=== PATIENT | female | born 1950 | race Hispanic/Latino ===

== ENCOUNTER → 2018-01-18 | Outpatient (CLI) | payer MEDICARE ==
[~2018-01-18] VITALS: Ht 152.4 cm; Wt 87.1 kg
[~2018-01-18] MED LIST: REGADENOSON 0.4 MG/5 ML PF SYG IVP SCH
== END | disposition home or self-care (01) ==
LOC: SHCH 08:39
PROVIDERS: ATTEND Internal Medicine Cardiovascular Disease
DX: I25.10 Atherosclerotic heart disease of native coronary artery without angina pectoris (principal)
CPT/HCPCS: 78452; 93017; 96374; A9500 ×2; J2785

== ENCOUNTER → 2018-01-19 | Outpatient (CLI) | payer MEDICARE | END | disposition home or self-care (01) | LOC: SHCH 13:33 | PROVIDERS: ATTEND Internal Medicine Cardiovascular Disease | DX: I25.119 Atherosclerotic heart disease of native coronary artery with unspecified angina pectoris (principal) | CPT/HCPCS: 93306 ==

== ENCOUNTER → 2018-06-16 | Outpatient (CLI) | payer MEDICARE | END | disposition home or self-care (01) | LOC: SHCH 10:59 | PROVIDERS: ATTEND Internal Medicine Cardiovascular Disease | DX: I73.9 Peripheral vascular disease, unspecified (principal) | CPT/HCPCS: 93925 ==

== ENCOUNTER 2018-10-06 07:16 | Day surgery (SDC) | payer MEDICARE ==
[2018-10-03 15:36] LABS: EOSINOPHILS % (AUTO) 1.7 % (0.0-8.0); HEMATOCRIT 32.8 % (36-48); LYMPHOCYTES % (AUTO) 24.9 % (21.0-51.0); MEAN CORPUSCULAR HEMOGLOBIN 30.9 pg (27.0-33.0); MEAN CORPUSCULAR HGB CONC 33.8 g/dL (32.0-36.0); MEAN CORPUSCULAR VOLUME 91.3 fL (79-99); MONOCYTES % (AUTO) 5.7 % (3.0-13.0); NEUTROPHILS % (AUTO) 66.7 % (40.0-77.0); PLATELET COUNT (AUTO) 208 K/uL (130-400); RED BLOOD CELL COUNT(AUTO) 3.59 MIL/uL (4.00-5.50); RED CELL DISTRIBUTION WIDTH 13.8 % (11.0-15.5); WHITE BLOOD COUNT (AUTO) 4.9 K/uL (4.8-10.8)
[2018-10-03 15:50] LABS: CREATININE 1.7 mg/dL (0.5-1.5); POTASSIUM 4.2 mmol/L (3.5-5.1)
[2018-10-03 16:10] VITALS: BP 99/53
--- NOTE | 2018-10-03 16:58 | NUR ---
UNAVAILABLE MEDICATIONS AT PREOP PATIENT NOR FAMILY MEMBER BROUGHT MEDICATIONS TO PREOP. DAUGHTER STATES SHE IS ON A BLOOD THINNER AND THINKS IT IS XARELTO FOR CIRCULATION OF LEGS. ADVISED DAUGHTER SHE WOULD NEED TO BRING MEDICATION IN THE AM SO WE CAN TELL HER WHAT MEDICATIONS HER MOTHER NEEDS TO TAKE AND WHAT BLOOD THINNER SHE IS ON. STATED SHE WOULD BRING THEM IN THE AM.
[2018-10-05 15:30] LABS: APPEARANCE,URINE CLEAR (CLEAR); BILIRUBIN,URINE NEGATIVE (NEGATIVE); COLOR,URINE YELLOW (YELLOW); GLUCOSE, URINE (UA) 250 mg/dL (NEGATIVE); KETONES,URINE NEGATIVE (NEGATIVE); LEUKOCYTE ESTERASE ,URINE SMALL (NEGATIVE); NITRATE,URINE NEGATIVE (NEGATIVE); OCCULT BLOOD,URINE NEGATIVE (NEGATIVE); PROTEIN,URINE NEGATIVE (NEGATIVE); UROBILINOGEN,URINE 0.2 mg/dL (0.2-1.0)
[2018-10-05 15:49] LABS: BACTERIA,URINE Few /HPF (None Seen); RBC,URINE 0-1 /HPF (0-1); SQUAMOUS EPITHELIAL CELL,UR Few /HPF (0-2)
[~2018-10-06] VITALS: Ht 154.9 cm; Wt 82.7 kg
[2018-10-06] VITALS (12 sets, daily range): BP systolic 119–151; BP diastolic 46–72
[~2018-10-06 07:16] MED LIST changes: +ATOR40TA71 PO; +CALC-190 PO; +CARV3.12 PO; +CHOL200016 PO; +DOCU-272 PO; +ESOM40CA54 PO; +FENO145T37 PO; +FERS325 PO; +FOLI1TAB61 PO; +FURO20TA4 PO; +INSU3INS5 SQ; +LEVO125T11 PO; +MIRA50TA PO; +NITR0.4T50 SL; +NITR100C PO; +PREG100C PO; +PREG50 PO; -REGADENOSON 0.4 MG/5 ML PF SYG IVP SCH; +RIVA2.5T PO; +SERT50TA12 PO; +TIZA2CAP9 PO; +TRAM50TA4 PO
[2018-10-06] MEDS ORDERED: BOTULINUM TOXIN TYPE A 100 UNITS/VIAL INJ ONE (08:00)
[2018-10-06] MEDS ORDERED: SODIUM CHLORIDE 0.9% 1000ML 1,000 ML IV ONE (08:26)
[2018-10-06] MEDS: CEFTRIAXONE SODIUM 1 GM ONE ×2 (08:36→09:00)
[2018-10-06] MEDS ORDERED: SUCCINYLCHOLINE 200MG/10ML SYR ONE (09:00)
[2018-10-06] MEDS ORDERED: LIDOCAINE PF 2% 5ML ABBOJECT ONE (09:00)
[2018-10-06] MEDS ORDERED: DEXAMETHASONE SOD PHOSPHATE 10MG/ML 1ML VIAL ONE (09:00)
[2018-10-06] MEDS ORDERED: NEOSTIGMINE 5MG/5ML SYR IV ONE (09:01)
[2018-10-06] MEDS ORDERED: PROPOFOL 10 MG/ML 20ML VIAL IV ONE (09:01)
[2018-10-06] MEDS ORDERED: ONDANSETRON HCL 4 MG/2 ML VIAL ONE (09:01)
[2018-10-06] MEDS ORDERED: ROCURONIUM 10MG/1ML SYR 10 MG/ML ML ONE (09:01)
[2018-10-06] MEDS ORDERED: GLYCOPYRROLATE 1 MG/5 ML SYRINGE ONE (09:01)
[2018-10-06] MEDS ORDERED: FENTANYL CITRATE PF 50 MCG/1 ML 2ML VIAL ONE (09:02)
--- NOTE | 2018-10-06 10:22 | NUR ---
ASSESSMENT RECEIVED PT FROM PACU STAFF Malika BASS RN. PT [email or web address]. DENIES ANY DISCOMFORT. DAUGHTER AT BEDSIDE.
--- NOTE | 2018-10-06 10:55 | NUR ---
DISCHARGE ORAL AND WRITTEN DISCHARGE INSTRUCTIONS GIVEN TO PT AND PTS FAMILY NO QUESTIONS AT THIS TIME.
== END 2018-10-06 10:56 | disposition home or self-care (01) ==
LOC: DAH 07:16
PROVIDERS: ATTEND Urology
DX: N39.46 Mixed incontinence (principal); I10 Essential (primary) hypertension; E11.9 Type 2 diabetes mellitus without complications; Z95.1 Presence of aortocoronary bypass graft; Z86.73 Personal history of transient ischemic attack (TIA), and cerebral infarction without residual deficits; I25.10 Atherosclerotic heart disease of native coronary artery without angina pectoris; Z91.040 Latex allergy status
CPT/HCPCS: 36415; 52287; 80048; 81001; 82948 ×2; 85025; 87088; 93005; A4215; A4358; A4600; J0330; J0585; J0696; J1100; J2001; J2405; J2704; J2710; J3010; J3490; J7030; J7120

== ENCOUNTER → 2019-02-07 | Outpatient (CLI) | payer MEDICARE ==
[~2019-02-07] VITALS: Ht 152.4 cm; Wt 87.1 kg
[~2019-02-07] MED LIST changes: -MIRA50TA PO; +REGADENOSON 0.4 MG/5 ML PF SYG IVP SCH
== END | disposition home or self-care (01) ==
LOC: SHCH 08:46
PROVIDERS: ATTEND Internal Medicine Cardiovascular Disease
DX: I25.810 Atherosclerosis of coronary artery bypass graft(s) without angina pectoris (principal); Z01.810 Encounter for preprocedural cardiovascular examination
CPT/HCPCS: 78452; 93017; 96374; A9500 ×2; J2785

== ENCOUNTER → 2019-04-10 | Outpatient (CLI) | payer MEDICARE ==
[~2019-04-10] VITALS: Ht 154.9 cm; Wt 79.9 kg
[~2019-04-10] MED LIST changes: +BOTULINUM TOXIN TYPE A 100 UNITS/VIAL INJ SCH; +FENO145T26 PO; -FENO145T37 PO; -REGADENOSON 0.4 MG/5 ML PF SYG IVP SCH
[2019-04-10 13:21] LABS: BASOPHILS % (AUTO) 1.1 % (0.0-5.0); EOSINOPHILS % (AUTO) 2.1 % (0.0-8.0); HEMATOCRIT 36.9 % (36-48); LYMPHOCYTES % (AUTO) 22.7 % (21.0-51.0); MEAN CORPUSCULAR HEMOGLOBIN 30.1 pg (27.0-33.0); MEAN CORPUSCULAR HGB CONC 33.1 g/dL (32.0-36.0); MEAN CORPUSCULAR VOLUME 91.1 fL (79-99); MONOCYTES % (AUTO) 6.7 % (3.0-13.0); NEUTROPHILS % (AUTO) 67.2 % (40.0-77.0); PLATELET COUNT (AUTO) 183 K/uL (130-400); RED BLOOD CELL COUNT(AUTO) 4.05 MIL/uL (4.00-5.50); RED CELL DISTRIBUTION WIDTH 13.2 % (11.0-15.5); WHITE BLOOD COUNT (AUTO) 4.8 K/uL (4.8-10.8)
[2019-04-10 13:31] LABS: CREATININE 1.5 mg/dL (0.5-1.5); POTASSIUM 4.1 mmol/L (3.5-5.1)
[2019-04-10 14:02] VITALS: BP 138/65
== END ==
LOC: DAH 10:00 → EDSTATUS 11:00
PROVIDERS: ATTEND Urology
DX: Z01.818 Encounter for other preprocedural examination (principal); R33.9 Retention of urine, unspecified; N13.8 Other obstructive and reflux uropathy; F41.9 Anxiety disorder, unspecified; F32.9 Major depressive disorder, single episode, unspecified; Z79.4 Long term (current) use of insulin; Z79.899 Other long term (current) drug therapy; Z88.8 Allergy status to other drugs, medicaments and biological substances; Z79.01 Long term (current) use of anticoagulants; Z82.49 Family history of ischemic heart disease and other diseases of the circulatory system; Z83.3 Family history of diabetes mellitus
CPT/HCPCS: 36415; 80048; 85025; 93005; A6260

== ENCOUNTER 2021-02-14 02:27 | Emergency (ER) | payer OTHER, MEDICARE ==
[~2021-02-14] VITALS: Ht 162.6 cm; Wt 86.2 kg
[~2021-02-14 02:27] MED LIST changes: -BOTULINUM TOXIN TYPE A 100 UNITS/VIAL INJ SCH; -DOCU-272 PO; +DOCU-280 PO; +SERT-439 PO; -SERT50TA12 PO
[2021-02-14] MEDS ORDERED: KETOROLAC 15MG/ML VIAL (15MG/ML) IV ONE (03:00)
[2021-02-14 05:36] VITALS: BP 151/72
== END 2021-02-14 05:17 | disposition home or self-care (01) ==
LOC: EDH 02:27
DX: S82.891A Other fracture of right lower leg, initial encounter for closed fracture (principal); I10 Essential (primary) hypertension; E11.9 Type 2 diabetes mellitus without complications; Z79.1 Long term (current) use of non-steroidal anti-inflammatories (NSAID); Z79.4 Long term (current) use of insulin; Z79.899 Other long term (current) drug therapy; W06.XXXD Fall from bed, subsequent encounter; Y93.89 Activity, other specified; Y92.89 Other specified places as the place of occurrence of the external cause; Y99.8 Other external cause status
CPT/HCPCS: 29515; 73600; 96374; 99284; J1885

== ENCOUNTER 2023-07-06 07:57 | Day surgery (SDC) | payer MEDICARE ==
[2023-06-28 11:22] LABS: BASOPHILS # (AUTO) 0.02 K/uL (0.00-0.20); BASOPHILS % (AUTO) 0.5 % (0.0-5.0); EOSINOPHILS # (AUTO) 0.06 K/uL (0.00-0.70); EOSINOPHILS % (AUTO) 1.6 % (0.0-8.0); HEMATOCRIT 29.1 % (36-48); IMMATURE GRANULOCYTE ABSOLUTE 0.01 K/uL (0-1); LYMPHOCYTES # (AUTO) 0.7 K/uL (1.0-4.8); LYMPHOCYTES % (AUTO) 18.4 % (21.0-51.0); MEAN CORPUSCULAR HEMOGLOBIN 29.5 pg (27.0-33.0); MEAN CORPUSCULAR HGB CONC 32.6 g/dL (32.0-36.0); MEAN CORPUSCULAR VOLUME 90.4 fL (79-99); MONOCYTES # (AUTO) 0.3 K/uL (0.1-1.0); MONOCYTES % (AUTO) 8.5 % (3.0-13.0); NEUTROPHILS # (AUTO) 2.7 K/uL (1.8-7.7); NEUTROPHILS % (AUTO) 70.7 % (40.0-77.0); PLATELET COUNT (AUTO) 109 K/uL (130-400); RED BLOOD CELL COUNT(AUTO) 3.22 MIL/uL (4.00-5.50); WHITE BLOOD COUNT (AUTO) 3.8 K/uL (4.8-10.8)
[2023-06-28 11:29] VITALS: BP 91/42; PULSE 69; RESP 16
[2023-06-28 11:33] LABS: ALBUMIN 2.6 g/dL (3.5-5.0); BILIRUBIN,TOTAL 0.6 mg/dL (0.2-1.0); CREATININE 1.4 mg/dL (0.5-1.0); POTASSIUM 4.1 mmol/L (3.5-5.1)
[2023-06-28 12:00] LABS: INR 1.01 (0.85-1.15); PROTHROMBIN TIME 11.9 SEC (9.6-11.6)
[2023-06-28 12:01] LABS: PARTIAL THROMBOPLASTIN TIME 30.5 SEC (26.3-35.5)
[2023-07-06] VITALS (16 sets, daily range): BP systolic 121–151; BP diastolic 52–66; PULSE 66–86; RESP 10–16
[~2023-07-06 07:57] MED LIST changes: +ACET-2079 PO; +ACET325T51 PO; +AEC81 PO; -CALC-190 PO; +CALC-898 PO; -CHOL200016 PO; +CYAN100099 PO; -DOCU-280 PO; -ESOM40CA54 PO; -FENO145T26 PO; -FERS325 PO; -FOLI1TAB61 PO; +FOLIC ACID PO; -FURO20TA4 PO; +FURO40TA5 PO; +GABA-529 PO; +HUMLIS7525 SQ; -INSU3INS5 SQ; +IPRA3AMP24 IH; +LACT10SO9 PO; +MONT-39 PO; -NITR0.4T50 SL; -NITR100C PO; +PANT40TA54 PO; +POTA-364 PO; -PREG100C PO; -PREG50 PO; -RIVA2.5T PO; +SERT-438 PO; -SERT-439 PO; -TIZA2CAP9 PO; -TRAM50TA4 PO
[2023-07-06] MEDS: INVANZ 1GM+NS 50ML IVPB 50 ML IV ONE (08:00)
[2023-07-06] MEDS: 0.9%NACL 1000ML 1,000 ML IV ONE (10:28)
[2023-07-06] MEDS ORDERED: ACETAMINOPHEN 1,000 MG/100 ML VIAL IV ONE (11:25)
[2023-07-06] MEDS ORDERED: FAMOTIDINE 20MG VIAL IV ONE (11:25)
[2023-07-06] MEDS ORDERED: PROPOFOL 10 MG/ML 20ML VIAL IV ONE (11:27)
[2023-07-06] MEDS ORDERED: LIDOCAINE PF 100MG/5ML (2%) SYRINGE 5ML ONE ×2 (11:27→11:35)
[2023-07-06] MEDS ORDERED: ROCURONIUM BROMIDE 10MG/1ML 5ML VL ONE (11:27)
[2023-07-06] MEDS ORDERED: FENTANYL CITRATE PF 50 MCG/1 ML 2ML VIAL ONE (11:27)
[2023-07-06] MEDS ORDERED: DEXAMETHASONE SOD PHOSPHATE 10MG/ML 1ML VIAL ONE (11:38)
[2023-07-06] MEDS ORDERED: ONDANSETRON 4MG INJ ONE (11:39)
[2023-07-06] MEDS: MEROPENEM 1 GM VIAL ONE (11:45)
[2023-07-06] MEDS: LIDOCAINE 1%-EPI 1:100,000 20 ML VIAL ONE (11:57)
[2023-07-06] MEDS: BUPIVACAINE/PF 0.25% 30ML VIAL IJ ONE (11:57)
[2023-07-06] MEDS: ONDANSETRON 4MG INJ ONE (13:02)
[2023-07-06] MEDS: MEPERIDINE-PF 25 MG/ML SYG ONE ×2 (13:02→13:09)
[2023-07-06] MEDS: DEXTROSE 50%-WATER 50 ML DISP.SYRIN IV ONE (13:03)
== END 2023-07-06 14:20 | disposition home or self-care (01) ==
LOC: DAH 07:57
PROVIDERS: ATTEND Surgery
DX: K64.2 Third degree hemorrhoids (principal); K92.1 Melena; I11.0 Hypertensive heart disease with heart failure; I50.9 Heart failure, unspecified; E11.51 Type 2 diabetes mellitus with diabetic peripheral angiopathy without gangrene; K21.9 Gastro-esophageal reflux disease without esophagitis; F41.9 Anxiety disorder, unspecified; E03.9 Hypothyroidism, unspecified; Z79.01 Long term (current) use of anticoagulants; Z79.899 Other long term (current) drug therapy; Z79.82 Long term (current) use of aspirin; Z79.4 Long term (current) use of insulin; Z98.890 Other specified postprocedural states; Z86.010 Personal history of colon polyps; Z86.73 Personal history of transient ischemic attack (TIA), and cerebral infarction without residual deficits
CPT/HCPCS: 80053; 85025; 85610; 85730; 36415; 93005; 45541; 46946; 82948 ×3; A6260; A4663; J7120; A4649 ×2; J3490 ×3; J3010; J1100; J7030; J0665; J7070; J2001 ×2; J2704; J2405 ×2; J2175 ×2; J2185; A4930; A4215; A4223; A4222; A4221; J1335